=== PATIENT | male | born 1965 ===

== ENCOUNTER 2016-11-15 10:59 | Emergency (ER) | payer MEDICAID, OTHER ==
[2016-11-15 11:03] VITALS: BMI 28.6
[2016-11-15 11:07] VITALS: RESP 18; TEMP 98.6; O2SAT 95
--- NOTE | 2016-11-15 12:35 | RAD ---
PROCEDURE: Radiographs of the Right Shoulder HISTORY: pain COMPARISON: No prior. FINDINGS: BONES: Normal. No fracture. JOINTS: Normal. Glenohumeral and acromioclavicular joints preserved. No osteoarthritis. SOFT TISSUES: Normal. OTHER FINDINGS: None. IMPRESSION: Normal radiographs of the right shoulder.
--- NOTE | 2016-11-15 13:09 | ED PDOC ---
Arrival/HPI - General Chief Complaint: Upper Extremity Problem/Injury Time Seen by Provider: 11/15/16 11:11 Historian: Patient - History of Present Illness Narrative History of Present Illness (Text): 11/15/16 13:02 A 51 year old male with no significant past medical history, presents to the emergency department with 1 month duration worsening right shoulder pain. The patient states that he works a lot with the arm and the pain worsens with movement or when carrying items. The patient denies injury/trauma, chest pain, shortness of breath, headache, dizziness, abdominal pain, nausea, vomiting, diarrhea, or any other complaint. Time/Duration: Other (1 month) Symptom Onset: Sudden Symptom Course: Unchanged Activities at Onset: Rest, Light Context: Home, Work Past Medical History - Provider Review Nursing Documentation Reviewed: Yes - Infectious Disease Hx of Infectious Diseases: None - Musculoskeletal/Rheumatological Hx Back Pain: Yes - Psychiatric Hx Psychophysiologic Disorder: No Hx Substance Use: No - Surgical History Other/Comment: Boil removal to right shoulder 2000 Family/Social History - Physician Review Nursing Documentation Reviewed: Yes Family/Social History: No Known Family HX Smoking Status: Current Some Days Smoker Hx Alcohol Use: Yes Frequency of alcohol use: Socially Hx Substance Use: No Allergies/Home Meds Allergies/Adverse Reactions: Allergies No Known Allergies Allergy (Verified 01/30/15 13:23) Physical Exam - Physical Exam Narrative Physical Exam (Text): - Review of Systems Constitutional: Normal. absent: Fatigue, Weight Change, Fevers Eyes: Normal ENT: Normal Respiratory: Normal absent: SOB, Cough, Sputum Cardiovascular: Normal absent: Chest pain, Palpitations, Syncope Gastrointestinal: Normal absent: Abdominal pain, Diarrhea, Nausea, Vomiting Genitourinary: Normal. absent: Dysuria, Frequency, Hematuria Musculoskeletal: (+) pain to right shoulder. absent: Back Pain, Neck Pain Skin: Normal Neurological: Normal absent: Focal Weakness Endocrine: Normal Hemo/Lymphatic: Normal Psychiatric: Normal - Physical exam Patient appears age appropriate, speaking full sentences without difficulty - Systems Exam Head: Present: Atraumatic, Normocephalic Pupils: Present: PERRL Extraocular Muscles: Present: EOMI Conjunctiva: Present: Normal Mouth: Present: Moist Mucous Membranes Neck: Present: Normal Range of Motion. No: MIDLINE TENDERNESS, Paraspinal Tenderness Respiratory/Chest: Present: Clear to Auscultation, Good Air Exchange. No: Respiratory Distress, Accessory Muscle Use, Tachypneic Cardiovascular: Present: Regular Rate and Rhythm, Normal S1, S2, Peripheral Pulses Present. No: Murmurs Abdomen: Present: Normal Bowel Sounds, No: Tenderness, Peritoneal Signs, Rebound, Guarding, Distention Back: Present: Normal Inspection. No: Midline Tenderness, Paraspinal Tenderness Upper Extremity: Present: Full active and passive range of motion in right shoulder. Distal neurovascular fully intact. Pain illicited with rotator cuff muscle testing. No: Cyanosis, Edema Lower Extremity: Present: Normal Inspection. No: Edema Neurological: Present: GCS=15, Speech Normal, cranial nerves II through XII fully intact with no cerebellar abnormality, neuro-sensory fully intact. No focal neurological deficits. Skin: Present: Warm, Dry, Normal Color. No: Rashes Lymphatic: Present: OX3, NI, NC Psychiatric: Present: Alert, Oriented x 3, Normal Insight, Normal Concentration Vital Signs Reviewed: Yes Vital Signs Temp Pulse Resp BP Pulse Ox 11/15/16 13:41 60 18 135/84 11/15/16 10:59 98.6 F 70 18 129/80 95 Temperature: Afebrile Blood Pressure: Normal Pulse: Regular Respiratory Rate: Normal Appearance: Positive for: Well-Appearing, Non-Toxic, Comfortable Pain Distress: None Mental Status: Positive for: Alert and Oriented X 3 Medical Decision Making ED Course and Treatment: 11/15/16 13:13 Impression: A 50 year old male with 1 month duration, worsening right shoulder pain. On exam , Full active and passive range of motion in right shoulder. Distal neurovascular fully intact. Pain quality reproduced with rotator cuff muscle testing. Plan: -- Right Shoulder X-Ray -- Reassess and disposition Progress Notes: Radiographs of the Right Shoulder Dictator : Timbo Youssef MD Report Date : 11/15/2016 12:33:48 IMPRESSION: Normal radiographs of the right shoulder. had an extensive d/w pt that although xrays are negative for any acute bony abnormality, it is still very important to fu with pmd and ortho specialist for further w/u and testing such as MRI to r/o any ligamentous/tendenous/meniscal injury. Pt verbalized full understanding of above discussion. Pt states he understands to return to the ER right away for new or worsening symptoms or for inability to f/u with PMD or specialist as instructed. Patient states that he fully agrees with and understands discharge instructions. States that he agrees with the plan and disposition. Verbalized and repeated discharge instructions and plan. I have given the patient opportunity to ask any additional questions. - RAD Interpretation Radiology Orders: 11/15/16 11:11 SHOULDER RIGHT [RAD] Stat - Scribe Statement The provider has reviewed the documentation as recorded by the Scribe Michelle Daly Provider Scribe Attestation: All medical record entries made by the Scribe were at my direction and personally dictated by me. I have reviewed the chart and agree that the record accurately reflects my personal performance of the history, physical exam, medical decision making, and the department course for this patient. I have also personally directed, reviewed, and agree with the discharge instructions and disposition Disposition/Present on Arrival - Present on Arrival Any Indicators Present on Arrival: No History of DVT/PE: No History of Uncontrolled Diabetes: No Urinary Catheter: No History of Decub. Ulcer: No History Surgical Site Infection Following: None - Disposition Have Diagnosis and Disposition been Completed?: Yes Diagnosis: Shoulder pain Disposition: HOME/ ROUTINE Disposition Time: 13:15 Patient Plan: Discharge Condition: GOOD Discharge Instructions (ExitCare): Arthralgia (ED), Shoulder Pain (ED) Additional Instructions: PLEASE RETURN TO THE EMERGENCY DEPARTMENT FOR NEW OR WORSENING SYMPTOMS. RETURN RIGHT AWAY IF YOU CANNOT FOLLOW UP WITH YOUR PRIMARY CARE DOCTOR, CLINIC, OR SPECIALIST IN 1-2 DAYS. Prescriptions: Naproxen [Naprosyn Tab] 250 mg PO Q8 #12 tab Referrals: PCP,NO [Primary Care Provider] - Follow up with primary Johnny Jessica III, MD [Medical Doctor] - Follow up with primary Timbo Guerrero DO [Staff Provider] - Follow up with primary Forms: [employer] (Khmer)
[2016-11-15 13:47] VITALS: BP 135/84; PULSE 60
== END 2016-11-15 13:25 | disposition home or self-care (01) ==
LOC: ED 10:59
DX: M25.511 Pain in right shoulder (principal)